=== PATIENT | male | born 2000 | race Caucasian/White ===

== ENCOUNTER 2020-06-23 00:01 | Inpatient (IN) | payer SELFPAY ==
[2020-06-23 00:02] VITALS: BP 121/85; PULSE 91; RESP 16; TEMP 36.6; O2SAT 97; BMI 27.3
--- NOTE | 2020-06-23 00:07 | W.ED.PSYCH ---
HPI - Psych General: Chief Complaint: Psychiatric Symptoms Stated Complaint: SI Time Seen by Provider: 06/23/20 00:01 Source: patient and EMS Mode of arrival: EMS Limitations: no limitations History of Present Illness: HPI Narrative: 19-year-old male who is here with EMS after having suicidal thoughts. Patient states his left him he has been severely depressed. He states he has a plan of getting a knife and cutting his wrist. He has no history of drug or alcohol abuse. He does not take any meds. He voluntarily wants to get help. MD complaint: suicidal ideation Associated symptoms: Reports depression and suicidal ideation Review of Systems Const: Denies: fever(s), chills, body aches or change in appetite Eyes: Denies: blurry vision or eye discomfort ENMT: Denies: throat pain or dental pain Card: Denies: chest pain Resp: Denies: dyspnea GI: Denies: abdominal pain, nausea, vomiting or diarrhea : Denies: dysuria Musc: Denies: neck pain or back pain Skin/Breast: Denies: rash Neuro: Denies: headache(s) Psych: Reports: depression and suicidal ideation Mitchell/Lymph: Denies: easy bruising All/Imm: Denies: urticaria Physical Exam Const: COMMON NORMALS: no acute distress, patient oriented x3 and healthy appearing HENMT: COMMON NORMALS: normocephalic and atraumatic HEAD & SCALP: normocephalic and atraumatic Eye: COMMON NORMALS: Equal, round and reactive pupils present and EOMs intact bilaterally PUPIL: Yes Equal, round and reactive pupils present Neck/C-Spine: COMMON NORMALS: full ROM and supple Chest: COMMONS NORMALS: normal inspection of the chest and normal palpation of entire chest wall Resp: COMMON NORMALS: normal respiratory effort, No retractions, No use of accessory muscles and clear to auscultation bilaterally AUSCULTATION: clear to auscultation bilaterally Cardio: COMMON NORMALS: regular rate, regular rhythm and No murmurs present (Cardio) RATE: regular rate RHYTHM: regular rhythm GI: COMMON NORMALS: Normal to inspection, nondistended, normoactive bowel sounds present, Soft to palpation, non-tender and no masses PALPATION: Yes Soft to palpation Extremity: COMMON NORMALS: normal to inspection and full ROM Neuro: COMMON NORMALS: patient oriented x3, moves all extremities and no focal motor deficits Psych: COMMON NORMALS: mental status grossly normal, Normal thought process present and cooperative MOOD & AFFECT: Yes depressed mood THOUGHT PROCESS: Normal thought process present THOUGHT CONTENT: Yes Suicidality present Skin: COMMON NORMALS: no rashes or lesions noted and no wounds GENERAL SKIN EXAM: no rashes or lesions noted MDM - Psych MDM Narrative: Medical decision making narrative: Patient presents here with suicidal ideation and voluntarily wants to get help. Patient is medically cleared I spoke to Dr. Anglin and will admit to the psychiatric unit. Lab Data: Labs: Lab Results 06/23/20 06/23/20 06/23/20 Range/Units 00:10 00:30 00:30 WBC 10.8 H (4.0-10.0) 10^3/ uL RBC 4.60 (4.1-5.3) 10^6/u L Hgb 13.3 (11.7-16.6) g/dL Hct 40.3 L (42.0-52.0) % MCV 87.6 (80-94) fL MCH 28.9 (28.0-34.0) pg MCHC 33.0 (30.0-36.0) g/dL RDW 12.5 (12.1-15.1) % Plt Count 376 (130-400) 10^3/c mm MPV 9.0 (7.4-10.4) fL Neut % (Auto) 62.3 % Lymph % (Auto) 26.2 % [place] % (Auto) 9.9 % Eos % (Auto) 0.8 % Baso % (Auto) 0.5 % Neut # (Auto) 6.76 (1.8-7.7) 10^3/u L Lymph # (Auto) 2.8 (0.8-4.8) 10^3/u L [place] # (Auto) 1.1 H (0.2-0.9) 10^3/u L Eos # (Auto) 0.1 (0.0-0.8) 10^3/u L Baso # (Auto) 0.1 (0.0-0.1) 10^3/u L Nucleated RBC % (a uto) 0 % Nucleated RBCs # 0.0 /100WBC Sodium 141 (136-145) mmol/L Potassium 3.5 (3.5-5.1) mmol/L Chloride 106 (98-107) mmol/L Carbon Dioxide 23 (22-29) mmol/L Anion Gap 15.5 (5-19) BUN 15 (6-20) mg/dL Creatinine 0.9 (0.7-1.2) mg/dL GFR Calculation 106.5 (90-130) mL/min Glucose 94 (65-115) mg/dL Calculated Osmolal ity 288 (285-295) mOsm/k g Calcium 9.4 (8.5-10.5) mg/dL Total Bilirubin 0.3 (0.15-1.2) mg/dL AST 14 (0-40) U/L ALT 10 (0-41) U/L Alkaline Phosphata se 88 (40-130) IU/L Total Protein 7.4 (6.6-8.7) g/dL Albumin 4.7 (3.5-5.2) g/dL Globulin 2.7 (1.3-4.6) g/dL Urine Opiates Scre en Negative (Negative) ng/mL Ur Barbiturates Sc reen Negative (Negative) ng/mL Ur Phencyclidine S crn Negative (Negative) ng/mL Ur Amphetamines Sc reen Negative (Negative) ng/mL U Benzodiazepines Scrn Negative (Negative) ng/mL Urine Cocaine Scre en Negative (Negative) ng/mL U Marijuana (THC) Screen Negative (Negative) ng/mL Discharge Plan Discharge Patient Disposition: Admitted As Inpatient Admit Provider: Randall Anglin Clinical Impression: Suicidal ideation Condition: Stable Referrals: Marta Feldman DO [Primary Care Provider] - Coding Level of Care Code ED Automatic Corn Grinder Operator for Chg Fwd Exam Comprehensive
[2020-06-23 00:36] LABS: Basophils # 0.1 10^3/uL (0.0-0.1); Basophils % 0.5 %; Eosinophils # 0.1 10^3/uL (0.0-0.8); Eosinophils % 0.8 %; Hematocrit 40.3 % (42.0-52.0); Hemoglobin 13.3 g/dL (11.7-16.6); Lymphocytes # 2.8 10^3/uL (0.8-4.8); Lymphocytes % 26.2 %; Mean Corpuscular Hemoglobin 28.9 pg (28.0-34.0); Mean Corpuscular Volume 87.6 fL (80-94); Monocytes # 1.1 10^3/uL (0.2-0.9); Monocytes % 9.9 %; Neutrophils # 6.76 10^3/uL (1.8-7.7); Neutrophils % 62.3 %; Nucleated Red Blood Cells % 0 %; Platelet Count 376 10^3/cmm (130-400); Red Cell Distribution Width 12.5 % (12.1-15.1); White Blood Count 10.8 10^3/uL (4.0-10.0)
[2020-06-23 00:47] LABS: Amphetamines Screen Urine Negative (Negative); Barbiturates Screen Urine Negative (Negative); Benzodiazepines Screen Urine Negative (Negative); Cocaine Screen Urine Negative (Negative); Opiate Screen Urine Negative (Negative); PCP Screen Urine Negative (Negative); THC Screen Urine Negative (Negative)
[2020-06-23 01:05] LABS: Alanine Aminotransferase 10 U/L (0-41); Albumin Level 4.7 g/dL (3.5-5.2); Alkaline Phosphatase 88 IU/L (40-130); Anion Gap 15.5 (5-19); Aspartate Amino Transferase 14 U/L (0-40); Blood Urea Nitrogen 15 mg/dL (6-20); Calcium 9.4 mg/dL (8.5-10.5); Carbon Dioxide 23 mmol/L (22-29); Chloride 106 mmol/L (98-107); Globulin 2.7 g/dL (1.3-4.6); Glomerular Filtration Rate 106.5 mL/min (90-130); Glucose 94 mg/dL (65-115); Osmolality Calculated 288 mOsm/kg (285-295); Potassium 3.5 mmol/L (3.5-5.1); Sodium 141 mmol/L (136-145); Total Bilirubin 0.3 mg/dL (0.15-1.2); Total Protein 7.4 g/dL (6.6-8.7)
[2020-06-23 01:28] VITALS: BP 116/74; PULSE 74; RESP 16; O2SAT 99
[2020-06-23 01:29] LABS: Acetaminophen < 5.0 ug/mL (10-30); Alcohol Level < 10 mg/dL (0-10); Salicylate < 0.3 mg/dL (3-10)
[2020-06-23 01:36] VITALS: BP 119/76; PULSE 82; RESP 18; TEMP 36.8; O2SAT 100
[2020-06-23 06:00] VITALS: BP 104/65; PULSE 75; RESP 19; TEMP 36.6; O2SAT 98
--- NOTE | 2020-06-23 09:57 | P.PN_ITS ---
Subjective NPU Subjective: Interval history: 19-year-old male who is here with EMS after having suicidal thoughts. Patient states his left him. He has been severely depressed. He states he has a plan of getting a knife and cutting his wrist. He has no history of drug or alcohol abuse. He does not take any meds. He voluntarily wants to get help. Medications: Reviewed: Yes Medication Review Details: Current Medications Acetaminophen (Tylenol) 650 mg PO Q4H PRN PRN Reason: MILD PAIN Benztropine Mesylate (Cogentin) 1 mg PO BID PRN PRN Reason: Mild Extrapyramidal symptoms Camphor/Menthol/Phenol (Blistex) 1 applic TOPICAL Q1H PRN PRN Reason: DRYNESS Diphenhydramine HCl (Benadryl) 50 mg IM ONCE PRN PRN Reason: Severe Extrapyramidal Symptoms Diphenhydramine HCl (Benadryl) 50 mg IM Q4H PRN PRN Reason: Severe Aggression Haloperidol (Haldol) 5 mg PO Q4H PRN PRN Reason: AGITATION Haloperidol Lactate (Haldol Inj) 5 mg IM Q4H PRN PRN Reason: Severe Aggression Hydroxyzine Pamoate (Vistaril) 50 mg PO Q6H PRN PRN Reason: ANXIETY Loperamide HCl (Imodium Capsule) 2 mg PO Q6H PRN PRN Reason: DIARRHEA Lorazepam (Ativan) 2 mg IM Q4H PRN PRN Reason: Severe Aggression Nicotine (Nicoderm 21 Mg Patch) 1 patch TRANSDERMA DAILY PRN PRN Reason: NICOTINE WITHDRAWAL Nicotine Polacrilex (Nicorette) 2 mg BUCCAL Q2H PRN PRN Reason: NICOTINE WITHDRAWAL Olanzapine (Zyprexa Zydis) 5 mg PO Q4H PRN PRN Reason: Agitation/Psychosis Ondansetron HCl (Zofran) 4 mg PO Q6H PRN PRN Reason: NAUSEA AND VOMITING Trazodone HCl (Desyrel) 50 mg PO BEDTIME PRN PRN Reason: SLEEP Mental Status Exam MSE Comments: This is a 19-year-old male who presents at his stated age. Mood is dysphoric but affect is calm. Thought processes are integrated and free of any racing, blocking or looseness of association. There is no evidence of psychosis such as but not limited to hallucinations, delusions or ideas of reference. Cognitive functions are quite good. Insight and judgment likewise. He recognizes that the break-up of his marriage is at least in part his responsibility. He wants to be a responsible parent to his children. He denies suicidal or homicidal ideation, plan or intent. Vitals/I&O/Wt Last Vital Signs Temp 97.9 F 06/23/20 06:00 Pulse 75 06/23/20 06:00 Resp 19 H 06/23/20 06:00 BP 104/65 06/23/20 06:00 Pulse Ox 98 06/23/20 06:00 Weight last 48 hrs Weight 180 lb Physical Exam Narrative: EXAM NARRATIVE: Const: no acute distress, patient oriented x3 and healthy appearing HENMT: normocephalic and atraumatic HEAD & SCALP: normocephalic and atraumatic Eye: Equal, round and reactive pupils present and EOMs intact bilaterally PUPIL: Yes Equal, round and reactive pupils present Neck/C-Spine: full ROM and supple Chest: normal inspection of the chest and normal palpation of entire chest wall Resp: normal respiratory effort, No retractions, No use of accessory muscles and clear to auscultation bilaterally Cardio: regular rate, regular rhythm and No murmurs present (Cardio) RATE: regular rate RHYTHM: regular rhythm GI: Normal to inspection, nondistended, normoactive bowel sounds present, Soft to palpation, non-tender and no masses Extremity: normal to inspection and full ROM Neuro: patient oriented x3, moves all extremities and no focal motor deficits Skin: no rashes or lesions noted and no wounds Data NPU : 06/23/20 00:30 06/23/20 00:30 A&P Assessment and plan (1) Adjustment disorder with depressed mood: This is a crisis. This is not a mental disorder. The patient is resolving very quickly. Status: Acute Involuntary Hold Information 96 Hour Hold: 96 Hour Involuntary Admission: No Attestations NPU Medical Necessity Statement*: I anticipate 1 midnight additional hospitalization Time Spent in Patient Care: Greater than 35 minutes (>than 50% of time spent in counselling and/or direct pt care on unit) . Review of chart. Interview and examine patient. Consultation with cyber ops planner and nursing staff. Documentation. 60 minutes. Coding Level of Care Code Acute Loading Unit Operator Crimping for Varun Fwd Diagnoses Adjustment disorder with depressed mood F43.21
[2020-06-23] MEDS: fluoxetine 10 mg Capsule PO (10:34)
[2020-06-23] MEDS: nicotine 21 mg Patch 1 PATCH TRANSDERMA (11:45)
[2020-06-23 13:51] VITALS: BP 93/54; PULSE 88; RESP 18; TEMP 36.9; O2SAT 97
[2020-06-23] MEDS: nicotine 2 mg Gum BUCCAL (17:42)
[2020-06-23 21:12] VITALS: BP 131/87; PULSE 85; RESP 20; TEMP 37.3; O2SAT 98
[2020-06-23] MEDS: hyDROXYzine 25 mg Capsule 50 MG PO (21:51)
[2020-06-23] MEDS: trazodone 50 mg Tablet PO (21:51)
[2020-06-24 06:00] VITALS: BP 95/57; PULSE 52; RESP 19; TEMP 36.7; O2SAT 98
--- NOTE | 2020-06-24 07:32 | PM.NDC ---
Diagnoses at Discharge Discharge Diagnosis (1) Adjustment disorder with depressed mood: Status: Resolved Reason for Visit Reason for Visit: SI Hospital Course Hospital Course Day #1: The patient is calming down rapidly. I suspect his crisis will be endurable for him by tomorrow. Discharge Summary The patient's anticipated resolution of his crisis came to the pelvis. He denies suicidal or homicidal ideation, plan or intent. He presents with normal mental status. He is neither distraught nor agitated. Involuntary Hold Information 96 Hour Hold: 96 Hour Involuntary Admission: No Mental Status Exam MSE Comments: This is a 19-year-old male who presents at his stated age. Mood is no longer dysphoric and affect is calm. Thought processes are integrated and free of any racing, blocking or looseness of association. There is no evidence of psychosis such as but not limited to hallucinations, delusions or ideas of reference. Cognitive functions are quite good. Insight and judgment likewise. He recognizes that the break-up of his marriage is at least in part his responsibility. He wants to be a responsible parent to his children. He denies suicidal or homicidal ideation, plan or intent. He has insight and judgment sufficient to assure his own safety. Physical Exam Narrative: EXAM NARRATIVE: Const: no acute distress, patient oriented x3 and healthy appearing HENMT: normocephalic and atraumatic HEAD & SCALP: normocephalic and atraumatic Eye: Equal, round and reactive pupils present and EOMs intact bilaterally PUPIL: Yes Equal, round and reactive pupils present Neck/C-Spine: full ROM and supple Chest: normal inspection of the chest and normal palpation of entire chest wall Resp: normal respiratory effort, No retractions, No use of accessory muscles and clear to auscultation bilaterally AUSCULTATION: clear to auscultation bilaterally Cardio: regular rate, regular rhythm and No murmurs present (Cardio) RATE: regular rate RHYTHM: regular rhythm GI: Normal to inspection, nondistended, normoactive bowel sounds present, Soft to palpation, non-tender and no masses PALPATION: Yes Soft to palpation Extremity: normal to inspection and full ROM Neuro: patient oriented x3, moves all extremities and no focal motor deficits Psych: mental status grossly normal, Normal thought process present and cooperative MOOD & AFFECT: Yes depressed mood THOUGHT PROCESS: Normal thought process present THOUGHT CONTENT: Yes Suicidality present Skin: no rashes or lesions noted and no wounds GENERAL SKIN EXAM: no rashes or lesions noted Discharge Data Vitals: Last Vital Signs Temp 98.1 F 06/24/20 06:00 Pulse 52 L 06/24/20 06:00 Resp 19 H 06/24/20 06:00 BP 95/57 06/24/20 06:00 Pulse Ox 98 06/24/20 06:00 Discharge Plan Discharge Patient Disposition: Home Condition: Stable Prescriptions: No Action No Known Home Medications RF: 0 Discharge Orders: Discharge Order (Routine); Ordered 06/24/20 Ordered By: Armin Funez Referrals: [facility] [Outside] - 1-3 days (call and request initial intake for outpatient mental health services. ) Matra Feldman, [Primary Care Provider] - Discharge Diet: Usual diet Discharge Activity: Resume usual activity Discharge Attestations NPU Time Spent in Discharge Care*: greater than 30 min Specific Discharge Activities: Specific discharge activities: educating patient, discussing with clinical case manager/social workers/dc planners, documenting/other paperwork and evaluating patient/reviewing data Coding Level of Care Code Acute Bender Machine Operator for Varun Fwroberto Diagnoses Adjustment disorder with depressed mood F43.21
[2020-06-24 07:55] VITALS: BP 95/57; PULSE 52; RESP 19; TEMP 36.7; O2SAT 98
[2020-06-24 08:30] VITALS: BP 95/57; PULSE 52; RESP 19; TEMP 36.7; O2SAT 98
--- NOTE | 2020-06-24 08:30 | PM.NDC ---
Diagnoses at Discharge Discharge Diagnosis (1) Adjustment disorder with depressed mood: Status: Resolved Reason for Visit Reason for Visit: SI Hospital Course Hospital Course Day #1: The patient is calming down rapidly. I suspect his crisis will be endurable for him by tomorrow. Involuntary Hold Information 96 Hour Hold: 96 Hour Involuntary Admission: No Mental Status Exam MSE Comments: This is a 19-year-old male who presents at his stated age. Mood is no longer dysphoric and affect is calm. Thought processes are integrated and free of any racing, blocking or looseness of association. There is no evidence of psychosis such as but not limited to hallucinations, delusions or ideas of reference. Cognitive functions are quite good. Insight and judgment likewise. He recognizes that the break-up of his marriage is at least in part his responsibility. He wants to be a responsible parent to his children. He denies suicidal or homicidal ideation, plan or intent. He has insight and judgment sufficient to assure his own safety. Physical Exam Narrative: EXAM NARRATIVE: Const: no acute distress, patient oriented x3 and healthy appearing HENMT: normocephalic and atraumatic HEAD & SCALP: normocephalic and atraumatic Eye: Equal, round and reactive pupils present and EOMs intact bilaterally PUPIL: Yes Equal, round and reactive pupils present Neck/C-Spine: full ROM and supple Chest: normal inspection of the chest and normal palpation of entire chest wall Resp: normal respiratory effort, No retractions, No use of accessory muscles and clear to auscultation bilaterally AUSCULTATION: clear to auscultation bilaterally Cardio: regular rate, regular rhythm and No murmurs present (Cardio) RATE: regular rate RHYTHM: regular rhythm GI: Normal to inspection, nondistended, normoactive bowel sounds present, Soft to palpation, non-tender and no masses PALPATION: Yes Soft to palpation Extremity: normal to inspection and full ROM Neuro: patient oriented x3, moves all extremities and no focal motor deficits Psych: mental status grossly normal, Normal thought process present and cooperative MOOD & AFFECT: Yes depressed mood THOUGHT PROCESS: Normal thought process present THOUGHT CONTENT: Yes Suicidality present Skin: no rashes or lesions noted and no wounds GENERAL SKIN EXAM: no rashes or lesions noted Discharge Data Vitals: Last Vital Signs Temp 98.1 F 06/24/20 07:55 Pulse 52 L 09/09/20 07:55 Resp 19 H 06/24/20 07:55 BP 95/57 06/24/20 07:55 Pulse Ox 98 06/24/20 07:55 Discharge Plan Discharge Patient Disposition: Home Condition: Stable Prescriptions: No Action No Known Home Medications RF: 0 Discharge Orders: Discharge Order (Routine); Ordered 06/24/20 Ordered By: Armin Funez Referrals: [facility] [[facility]] - 1-3 days (call and request initial intake for outpatient mental health services. ) Marta Feldman DO [Primary Care Provider] - Discharge Diet: Usual diet Discharge Activity: Resume usual activity Patient Instructions: Anxiety (DC) Discharge Attestations NPU Time Spent in Discharge Care*: less than 30 min Specific Discharge Activities: Specific discharge activities: educating patient, discussing with binder caser/social workers/dc planners, documenting/other paperwork and evaluating patient/reviewing data Coding Level of Care Code Acute Sporting Goods Sales Associate for Varun Fwroberto Diagnoses Adjustment disorder with depressed mood F43.21
== END 2020-06-24 08:57 | disposition home or self-care (01) | DRG 881 ==
LOC: ER 00:21 → NP 01:20
PROVIDERS: Emergency Medicine; Admitting Provider Psychiatry & Neurology Psychiatry; Family Provider Family Medicine; PCP Family Medicine; Visit Provider Psychiatry & Neurology Psychiatry
DX: F43.21 Adjustment disorder with depressed mood (principal); R45.851 Suicidal ideations
CPT/HCPCS: 12345; 80053; 80306; 80307; 85025; 99284

== ENCOUNTER 2022-10-18 12:37 | Emergency (ER) | payer SELFPAY ==
[2022-10-18 12:49] VITALS: BP 154/98; PULSE 107; RESP 18; TEMP 37.1; O2SAT 97
--- NOTE | 2022-10-18 13:21 | W.ED.DENTAL ---
HPI - Dental/Oral General: Chief complaint: Dental/Oral Stated complaint: jaw pain Time Seen by Provider: 10/18/22 12:55 Source: patient Mode of arrival: ambulatory Limitations: no limitations History of Present Illness: Patient is a 21-year-old male who presents to ED today with a complaint of right upper dental pain. He states he has had intermittent pain in that particular tooth for several months. He does feel like over the past couple of days he has noticed some right-sided facial swelling. Patient is able to eat and drink normally. He is not having any fevers. MD Complaint: tooth pain Teeth map: 1. cracked molar Onset (ago): day(s) Duration: intermittent Severity: moderate Relieving factors: nothing Exacerbating factors: chewing Context: history of dental caries and poor dental care Associated symptoms: Denies fever(s) or odynophagia Treatment prior to arrival: none Review of Systems Const: Denies: fever(s), chills, body aches, fatigue or malaise Eyes: Denies: change in vision or blurry vision ENMT: Reports: dental pain; Denies: throat pain, uvular edema, enlarged tonsils, odynophagia, hoarseness, mouth pain, swelling of lips/tongue, oral sores or bleeding gums Card: Denies: chest pain Resp: Denies: dyspnea Musc: Denies: neck pain Skin/Breast: Denies: rash Neuro: Denies: headache(s) Physical Exam Const: COMMON NORMALS: no acute distress, average body habitus, patient oriented x3, no limitations, healthy appearing, alert and well nourished GENERAL APPEARANCE: cooperative HENMT: COMMON NORMALS: normocephalic and atraumatic HEAD & SCALP: normal to inspection, normocephalic and atraumatic FACE & SINUS: other (very subtle R sided facial swelling; no abscess noted) MOUTH: Normal oral and palatal mucosa present, lip normal and tongue normal TEETH & GINGIVA IMAGES: 1. cracked molar THROAT: posterior oropharynx normal, tonsils normal and uvula midline; no uvular edema Eye: GENERAL EYE: appearance normal, both eyes and all related structures Neck/C-Spine: COMMON NORMALS: no lymphadenopathy GENERAL: Yes normal visual inspection Resp: COMMON NORMALS: normal respiratory effort Cardio: COMMON NORMALS: regular rate and regular rhythm RATE: regular rate RHYTHM: regular rhythm Neuro: COMMON NORMALS: patient oriented x3 SENSORIUM/ORIENTATION: Yes alert Course Vital Signs: Vital signs: Vital Signs Temperature 98.8 F 10/18/22 12:49 Pulse Rate 107 H 10/18/22 12:49 Respiratory Rate 18 10/18/22 12:49 Blood Pressure 154/98 10/18/22 12:49 Pulse Oximetry 97 10/18/22 12:49 MDM - Dental/Oral Medical Decision Making Recommend dental follow-up as soon as possible for further evaluation and treatment options. Return ED precautions given. Discharge Plan Discharge Patient Disposition: Home Clinical Impression: Toothache Condition: Stable Prescriptions: New clindamycin HCl 300 mg capsule 300 mg PO Q6H 7 Days Qty: 28 0RF ibuprofen 800 mg tablet 800 mg PO Q8H PRN (Reason: pain) Qty: 20 0RF Discharge Orders: Discharge ED (Routine); Ordered 10/18/22 Ordered By: Kayleen Rodriguez Patient Instructions: Toothache (ED) Coding Level of Care Code ED Wax Pattern Assembler for Varun Mac
== END 2022-10-18 13:33 | disposition home or self-care (01) ==
PROVIDERS: Emergency Provider Physician Assistant
DX: K08.89 Other specified disorders of teeth and supporting structures (principal)
CPT/HCPCS: 99283

== ENCOUNTER 2024-12-27 16:29 | Emergency (ER) | payer SELFPAY ==
[2024-12-27 16:36] VITALS: BP 147/76; PULSE 101; RESP 18; TEMP 37.5; O2SAT 98; BMI 26.3
--- NOTE | 2024-12-27 16:57 | ED_ITS ---
HPI - Allergic Reaction General: Chief complaint: Allergic Reaction Stated complaint: allergic reaction Time Seen by Provider: 12/27/24 16:54 Source: patient Mode of arrival: ambulatory Limitations: no limitations History of Present Illness: HPI narrative: 24-year-old male states that he fell exa m allergic reaction before arrival. He states he started having some redness to his face he felt flushed he said he is having some shortness of breath and felt like his throat was swelling. He states that over the last 30 minutes he states that is improved he still has some slight erythema to his face he denies feeling short of breath currently. He denies any chest pain Associated symptoms: Deny abdominal pain, nausea or vomiting Related Data Previous Rx's ?Medication ?Instructions ?Recorded ibuprofen 800 mg tablet 800 mg PO Q8H PRN pain #20 t abs 10/18/22 Allergies Allergy/AdvReac Type Severity Reaction Status Date / Time amoxicillin Allergy Unknown Verified 06/23/20 00:06 Penicillins Allergy Unknown Verified 06/23/20 00:06 rofecoxib (From Vioxx) Allergy Unknown Verified 06/23/20 00:06 Review of Systems Const: Denies: fever(s), chills, body aches or change in appetite ENMT: Denies: throat pain or dental pain Card: Denies: chest pain Resp: Reports: dyspnea GI: Denies: abdominal pain, nausea, vomiting or diarrhea Musc: Denies: neck pain or back pain Skin/Breast: Reports: rash Neuro: Denies: headache(s) Physical Exam Const: COMMON NORMALS: no acute distress, patient oriented x3 and healthy appearing HENMT: COMMON NORMALS: normocephalic and atraumatic HEAD & SCALP: normocephalic and atraumatic THROAT: posterior oropharynx normal Eye: COMMON NORMALS: Equal, round and reactive pupils present and EOMs intact bilaterally PUPIL: Yes Equal, round and reactive pupils present Neck/C-Spine: COMMON NORMALS: full ROM and supple Chest: COMMONS NORMALS: normal inspection of the chest Resp: COMMON NORMALS: normal respiratory effort, No retractions, No use of accessory muscles and clear to auscultation bilaterally AUSCULTATION: clear to auscultation bilaterally Cardio: COMMON NORMALS: regular rate, regular rhythm and No murmurs present (Cardio) RATE: regular rate RHYTHM: regular rhythm Extremity: COMMON NORMALS: normal to inspection and full ROM Neuro: COMMON NORMALS: patient oriented x3, moves all extremities and no focal motor deficits Psych: COMMON NORMALS: mental status grossly normal, Normal thought process present and cooperative THOUGHT PROCESS: Normal thought process present Skin: COMMON NORMALS: no wounds NARRATIVE SKIN EXAM: Slight rash to face Course Vital Signs: Vital signs: Vital Signs Temperature 99.5 F 12/27/24 16:36 Pulse Rate 90 12/27/24 18:02 Respiratory Rate 18 12/27/24 16:36 Blood Pressure 122/76 12/27/24 18:02 Pulse Oximetry 99 12/27/24 18:02 Oxygen Delivery Me thod Room Air 12/27/24 18:02 MDM - Allergic Reaction Medical Decision Making Patient presents here with an allergic reaction he has no signs of airway involvement he feels much improved here after meds he is stable for discharge follow-up with PCP return if worsening. Medical Records I reviewed the patient's medical records. No radiology studies performed this visit Discharge Plan Discharge Patient Disposition: Home Clinical Impression: Allergic reaction Condition: Stable Prescriptions: No Action ibuprofen 800 mg tablet 800 mg PO Q8H PRN (Reason: pain) Qty: 20 0RF Discharge Orders: Discharge ED (Routine); Ordered 12/27/24 Ordered By: Adry Sin Discharge Diet: Advance as tolerated Discharge Activity: Resume usual activity Patient Instructions: General Allergic Reaction (ED) Print Language: Latvian Coding Level of Care Code ED School Bus Technician for Varun Mac
[2024-12-27] MEDS: diphenhydrAMINE 50 mg/mL SDV 1mL IVP (17:50)
[2024-12-27] MEDS: famotidine 20 mg/2 mL INJ 40 MG IVP (17:57)
[2024-12-27] MEDS: methylPREDNISolone sod succ 125 mg/2 mL INJ IVP (17:58)
[2024-12-27 18:02] VITALS: BP 122/76; PULSE 90; O2SAT 99
[2024-12-27 18:38] VITALS: BP 129/80; PULSE 92; O2SAT 97
== END 2024-12-27 18:41 | disposition home or self-care (01) ==
PROVIDERS: Emergency Provider Emergency Medicine
DX: T78.40XA Allergy, unspecified, initial encounter (principal); X58.XXXA Exposure to other specified factors, initial encounter
CPT/HCPCS: 96374; 96375; 99284; J1200; J2919; J3490

== ENCOUNTER 2025-07-28 10:40 | Emergency (ER) | payer SELFPAY ==
[2025-07-28 10:56] VITALS: BP 139/103; PULSE 93; RESP 20; TEMP 36.7; O2SAT 96; BMI 27.3
--- NOTE | 2025-07-28 11:01 | ED_ITS ---
HPI - Abdominal Pain 2 General: Chief Complaint: Abdominal Pain Stated Complaint: right side pain Lightheaded Time Seen by Provider: 07/28/25 10:56 Source: patient Mode of arrival: ambulatory Limitations: no limitations History of Present Illness: Patient is a 24-year-old male presents to ED today with complaint of right sided abdominal pain of the past 2 days or so. He does feel like pain has progressively worsened since onset. He states he feels incredibly nauseous and lightheaded. He has not had any episodes of emesis. He does feel like he is having more frequent episodes of defecation. He is not complaining of painful defecation or blood in his stools. He has not noticed any black or tarry stools. No history of nephroureterolithiasis. Patient denies previous abdominal surgeries. He is not complaining of back pain. He cannot identify any alleviating or worsening factors to his discomfort. No fevers. MD elicited complaint: abdominal pain Pertinent past history: none Onset (ago): day(s) Pain Consistency: constant Location: RUQ and RLQ Severity: moderate Radiation: none Migration to: no migration Exacerbating factors: nothing Relieving factors: nothing Associated Symptoms: Reports nausea and other (more frequent BMs); Denies chills, dysuria, fever(s), heartburn, hematochezia, hematuria, melena and vomiting Related Data Previous Rx's ?Medication ?Instructions ?Recorded ibuprofen 800 mg tablet 800 mg PO Q8H PRN pain #20 t abs 10/18/22 Allergies Allergy/AdvReac Type Severity Reaction Status Date / Time amoxicillin Allergy Unknown Verified 06/23/20 00:06 Penicillins Allergy Unknown Verified 06/23/20 00:06 rofecoxib (From Vioxx) Allergy Unknown Verified 06/23/20 00:06 Review of Systems 2 Const: Denies: fever(s), chills, body aches, fatigue or malaise Card: Denies: chest pain Resp: Denies: dyspnea GI: Reports: abdominal pain, nausea and other (more frequent BMs); Denies: vomiting, heartburn, rectal pain, hematochezia or melena : Denies: flank pain, dysuria, hematuria, genital pain, testicular pain or scrotal swelling Musc: Denies: back pain Skin/Breast: Denies: rash Neuro: Denies: headache(s) or difficulty walking Physical Exam 2 Const: COMMON NORMALS: no acute distress, average body habitus, patient oriented x3, no limitations, healthy appearing, alert and well nourished G ENERAL APPEARANCE: cooperative ORIENTATION/CONSCIOUSNESS: Yes awake, Yes oriented to person, Yes oriented to place and Yes oriented to time HENMT: COMMON NORMALS: normocephalic and atraumatic HEAD & SCALP: normal to inspection, normocephalic and atraumatic Eye: COMMON NORMALS: no scleral icterus Neck/C-Spine: COMMON NORMALS: full ROM, no lymphadenopathy, supple and no meningeal signs Chest: COMMONS NORMALS: normal inspection of the chest Resp: COMMON NORMALS: normal respiratory effort and clear to auscultation bilaterally AUSCULTATION: clear to auscultation bilaterally Cardio: COMMON NORMALS: regular rate and regular rhythm RATE: regular rate RHYTHM: regular rhythm GI: COMMON NORMALS: Normal to inspection, nondistended, normoactive bowel sounds present, Soft to palpation, No hepatosplenomegaly present and no masses INSPECTION: Yes normal to inspection AUSCULTATION: Yes normoactive bowel sounds PALPATION: Yes Soft to palpation, Yes Tenderness to palpation present (GI) (R mid/lateral abdomen, RLQ) Details: RLQ, No Guarding due to palpation present (GI), No Rigid due to palpation, Yes No hepatosplenomegaly present, No Rebound tenderness present and Yes Other GI palpation findings present (negative specialized testing for appendicitis ) : BLADDER/KIDNEY EXAM: Yes CVA tenderness on the right (mild) Back/Pelvis: COMMON NORMALS: thoracic and lumbar spine normal to inspection GENERAL BACK: Yes CVA tenderness Extremity: COMMON NORMALS: normal to inspection GENERAL: Yes normal exam except as noted Neuro: COMMON NORMALS: patient oriented x3, moves all extremities, no focal motor deficits, no sensory deficits noted and gait normal S ENSORIUM/ORIENTATION: Yes alert, Yes oriented to person, Yes oriented to place and Yes oriented to time MENINGEAL SIGNS: Yes no meningeal signs Skin: COMMON NORMALS: no rashes or lesions noted GENERAL SKIN EXAM: no rashes or lesions noted Course 2 Vital Signs: Vital signs: Vital Signs Temperature 98.1 F 07/28/25 10:56 Pulse Rate 76 07/28/25 11:08 Respiratory Rate 16 07/28/25 11:47 Blood Pressure 127/85 07/28/25 12:32 Pulse Oximetry 97 07/28/25 12:32 Oxygen Delivery Me thod Room Air 07/28/25 12:32 MDM - Abdominal Pain Medical Decision Making Patient is a 24-year-old male here for right sided abdominal pain over the past 2 days or so. Vital signs are stable upon arrival. Blood work obtained showing a white count of 15.5. Remainder of his labs/chemistry are unremarkable. His UA is clear. CT scan obtained to rule out life-threatening or emergent etiology differentials including acute appendicitis, bowel perforation, SBO, nephroureterolithiasis/obstructive uropathy, among others. CT scan was unremarkable. Patient will be allowed discharge with recommendations to follow- up with primary care later this week for reevaluation. Return to ED precautions discussed. Differential Diagnosis Likely abdominal pain, acute appendicitis, calculus of kidney, constipation and diverticulitis Medical Records I reviewed the patient's medical records. Lab Data I reviewed the patient's lab results. 07/28/25 11:09 07/28/25 11:09 Labs/Radiology: Radiology Impressions Abdomen/Pelvis CT 07/28/25 11:42 IMPRESSION: 1. No renal obstruction. 2. No hydronephrosis or periureteral stranding. 3. Normal appendix. 4. No free fluid or free air. 5. No colitis. 6. Negative gallbladder by CT. Laboratory Results WBC 15.50 10^3/uL (3.29-11.43) H 07/28/25 11:09 RBC 5.12 10^6/uL (3.85-5.65) 07/28/25 11:09 Hgb 14.80 g/dL (11.27-16.99) 07/28/25 11:09 Hct 43.6 % (37-53) 07/28/25 11:09 MCV 85.2 fl (82-101) 07/28/25 11:09 MCH 28.9 pg (27-33) 07/28/25 11:09 MCHC 33.9 g/dL (30-55) 07/28/25 11:09 RDW 12.7 % (12.1-15.1) 07/28/25 11:09 Plt Count 467 10^3/cmm (157-399) H 07/28/25 11:09 MPV 8.8 fL (7.4-10.4) 07/28/25 11:09 Neut % (Auto) 70.2 % 07/28/25 11:09 Lymph % (Auto) 19.9 % 07/28/25 11:09 [place] % (Auto) 8.4 % 07/28/25 11:09 Eos % (Auto) 0.6 % 07/28/25 11:09 Baso % (Auto) 0.4 % 07/28/25 11:09 Neut # (Auto) 10.90 10^3/uL (1.8-7.7) H 07/28/25 11:09 Lymph # (Auto) 3.1 10^3/uL (0.8-4.8) 07/28/25 11:09 [place] # (Auto) 1.3 10^3/uL (0.2-0.9) H 07/28/25 11:09 Eos # (Auto) 0.1 10^3/uL (0.0-0.8) 07/28/25 11:09 Baso # (Auto) 0.1 10^3/uL (0.0-0.1) 07/28/25 11:09 Nucleated RBC % (auto) 0 % 07/28/25 11:09 Nucleated RBCs # 0.0 /100WBC 07/28/25 11:09 Sodium 138 mmol/L (136-145) 07/28/25 11:09 Potassium 4.1 mmol/L (3.5-5.1) 07/28/25 11:09 Chloride 101 mmol/L (98-107) 07/28/25 11:09 Carbon Dioxide 23 mmol/L (22-29) 07/28/25 11:09 Anion Gap 18.1 (5-19) 07/28/25 11:09 BUN 10 mg/dL (6-20) 07/28/25 11:09 Creatinine 0.8 mg/dL (0.7-1.2) 07/28/25 11:09 GFR Calculation 116.9 mL/min (90-130) 07/28/25 11:09 Glucose 94 mg/dL (65-115) 07/28/25 11:09 Calculated Osmolality 285 mOsm/kg (285-295) 07/28/25 11:09 Calcium 9.7 mg/dL (8.5-10.5) 07/28/25 11:09 Total Bilirubin 0.3 mg/dL (0.15-1.2) 07/28/25 11:09 AST 27 U/L (0-40) 07/28/25 11:09 ALT 41 U/L (0-41) 07/28/25 11:09 Alkaline Phosphatase 89 U/L (40-130) 07/28/25 11:09 Total Protein 7.7 g/dL (6.6-8.7) 07/28/25 11:09 Albumin 4.8 g/dL (3.5-5.2) 07/28/25 11:09 Globulin 2.9 g/dL (1.3-4.6) 07/28/25 11:09 Lipase 29 U/L (13-60) 07/28/25 11:09 Urine Color Yellow (Yellow) 07/28/25 11:09 Urine Appearance Clear (CLEAR) 07/28/25 11:09 Urine pH 6.0 (5-7) 07/28/25 11:09 Ur Specific [place] 1.014 (1.005-1.030) 07/28/25 11:09 Urine Protein Negative (Negative) 07/28/25 11:09 Urine Glucose (UA) Negative (Normal) 07/28/25 11:09 Urine Ketones Negative (Negative) 07/28/25 11:09 Urine Blood Negative (Negative) 07/28/25 11:09 Urine Nitrate Negative (Negative) 07/28/25 11:09 Urine Bilirubin Negative (Negative) 07/28/25 11:09 Urine Urobilinogen 0.2 mg/dL (Negative) 07/28/25 11:09 Ur Leukocyte Esterase Negative (Negative) 07/28/25 11:09 Amorphous Sediment Not Reportable 07/28/25 11:09 All radiology interpretation(s) finalized by discharge Discharge Plan Discharge Patient Disposition: Home Clinical Impression: Right-sided abdominal pain of unknown etiology Condition: Stable Prescriptions: No Action ibuprofen 800 mg tablet 800 mg PO Q8H PRN (Reason: pain) Qty: 20 0RF Discharge Orders: Discharge ED (Routine); Ordered 07/28/25 Ordered By: Kayleen Rodriguez Patient Instructions: Abdominal Pain (ED), Patient Portal & Oleg Instructions Activity Restrictions/Additional Instructions: As we discussed, your blood work here showing a mild elevation in your white blood cell count but was otherwise completely unremarkable. Your urine was clear. CT scan showing no evidence of surgical/emergent/life-threatening etiology for your discomfort. We discussed continuing to observe symptoms closely at home. You may return to the emergency department for worsening or uncontrollable abdominal pain, fevers, generally feeling worse or unwell, or any other concerns you may have. Print Language: Spanish Coding Level of Care Code ED Business Systems Lead for Varun Mac
[2025-07-28 11:08] VITALS: BP 139/103; PULSE 76; RESP 17; O2SAT 99
--- OUTSIDE RECORDS SUMMARY | 2025-07-28 11:12 | XMS_ITS | Encounter Summary ---
Author Organization 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
--- OUTSIDE RECORDS SUMMARY | 2025-07-28 11:12 | XMS_ITS | Encounter Summary ---
Author Organization [facility] Address [address] [place] [address] Care Team Providers Care Companion Name Role Phone Marta Feldman DO Primary Care Provider [phone] Encounter Details Date Type Department Care Team (Latest Contact Info) Description 09/11/2000 Outpatient Historical [facility] [address] [phone] Judd Leon MD [address] [phone] Unspecified otitis media (Primary Dx) Social History Tobacco Use Types Packs/Day Years Used Date Smoking Tobacco: Never Assessed Sex and Gender Information Value Date Recorded Sex Assigned at Not on file 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
--- OUTSIDE RECORDS SUMMARY | 2025-07-28 11:12 | XMS_ITS | Encounter Summary ---
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
--- OUTSIDE RECORDS SUMMARY | 2025-07-28 11:12 | XMS_ITS | Encounter Summary ---
Author Organization [facility] Address [address] [place] [address] Care Team Providers Care Water Quality Manager Name Role Phone Marta Feldman DO Primary Care Provider Encounter Details Date Type Department Care Team (Latest Contact Info) Description 07/28/[address] 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
--- OUTSIDE RECORDS SUMMARY | 2025-07-28 11:12 | XMS_ITS | Encounter Summary ---
Author Organization [facility] Address [address] [place] [address] Care Team Providers Care Brake Drum Lathe Operator Name Role Phone Marta Feldman DO Primary Care Provider [phone] Encounter Details Date Type Department Care Team (Late st Contact Info) Description 05/03/1999 Outpatient Historical [facility] [address] [phone] Judd Leon MD [address] [phone] Social History Tobacco Use Types Packs/Day Years Used Date Smoking Tobacco: Never Assessed Sex and Gender Information Value Date Recorded Sex Assigned at Not on file 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
--- OUTSIDE RECORDS SUMMARY | 2025-07-28 11:12 | XMS_ITS | Encounter Summary ---
Author Organization [facility] Address [address] [place] [address] Care Team Providers Care News Department Intern Name Role Phone Marta Feldman DO Primary Care Provider Encounter Details Date Type Department Care Team (Latest Contact Info) Description 11/03/2003 Outpatient Historical [facility] [address] [phone] Judd Leno MD [address] [place] [phone] IMPETIGO (Primary Dx); CONJUNCTIVITIS NOS Social History Tobacco Use Types Packs/Day Years Used Date Smoking Tobacco: Never Assessed Sex and Gender Information Value Date Recorded Sex Assigned at Not on file 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
--- OUTSIDE RECORDS SUMMARY | 2025-07-28 11:12 | XMS_ITS | Encounter Summary ---
Author Organization [facility] Address [address] [place] [address] Care Team Providers Care Fish Technologist Name Role Phone Marta Feldman DO Primary Care Provider Encounter Details Date Type Department Care Team (Latest Contact Info) Description 01/07/2002 Outpatient Historical [facility] [address] [phone] Judd Leon MD [address] [phone] OTITIS MEDIA NOS (Primary Dx) Social History Tobacco Use Types Packs/Day Years Used Date Smoking Tobacco: Never Assessed Sex and Gender Information Value Date Recorded Sex Assigned at Not on file 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
--- OUTSIDE RECORDS SUMMARY | 2025-07-28 11:12 | XMS_ITS | Encounter Summary ---
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
--- OUTSIDE RECORDS SUMMARY | 2025-07-28 11:12 | XMS_ITS | Encounter Summary ---
Author Organization [facility] Address [address] [place] [address] Care Team Providers Care Command Center Analyst Name Role Phone Marta Feldman DO Primary Care Provider Encounter Details Date Type Department Care Team (Latest Contact Info) Description 01/11/2000 Outpatient Historical 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
--- OUTSIDE RECORDS SUMMARY | 2025-07-28 11:12 | XMS_ITS | Encounter Summary ---
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
--- OUTSIDE RECORDS SUMMARY | 2025-07-28 11:12 | XMS_ITS | Encounter Summary ---
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
--- OUTSIDE RECORDS SUMMARY | 2025-07-28 11:12 | XMS_ITS | Encounter Summary ---
Author Organization [facility] Address [address] [place] [address] Care Team Providers Care Sqe Name Role Phone Marta Feldman DO Primary Care Provider Encounter Details Date Type Department Care Team (Latest Contact Info) Description 1998 Outpatient Historical [facility] [place] [address] [phone] Judd Leon MD [address] [place] [phone] Routine child health exam (Primary Dx); Candidiasis of mouth Social History Tobacco Use Types Packs/Day Years Used Date Smoking Tobacco: Never Assessed Sex and Gender Information Value Date Recorded Sex Assigned at Not on file Legal Sex Male 5:58 AM SUPPLY COORDINATOR Gender Identity Not on file Sexual Orientation Not on file documented as of this encounter Plan of Treatment Not on file documented as of this encounter Visit Diagnoses Diagnosis Routine child health exam- Primary Routine or child health check Candidiasis of mouth documented in this encounter Care Teams Sqe Relationship Specialty Start Date End Date Marta Feldman DO [address] [place] [phone] PCP - General 9/2/09 documented as of this encounter
--- OUTSIDE RECORDS SUMMARY | 2025-07-28 11:12 | XMS_ITS | Encounter Summary ---
Author Organization [facility] Address [address] [place] [address] Care Team Providers Care Gallery Host Name Role Phone Marta Feldman DO Primary Care Provider Encounter Details Date Type Department Care Team (Latest Contact Info) Description 08/14/2001 Outpatient Historical [facility] [place] [facility] [place] [address] [phone] Judd Leon MD [address] [place] [phone] UNSPEC DENTAL CARIES (Primary Dx); VACCINE FOR SINGL DIS NOS Social History Tobacco Use Types Packs/Day Years Used Date Smoking Tobacco: Never Assessed Sex and Gender Information Value Date Recorded Sex Assigned at Not on file 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
--- OUTSIDE RECORDS SUMMARY | 2025-07-28 11:12 | XMS_ITS | Clinical Summary ---
Author Organization [facility] Address [address] [facility] Attn: [place] [address] Care Team Providers Care Brand Recorder Name Role Phone Marta Feldman DO Primary Care Provider Allergies Active Allergy Reactions Criticality Noted Date Comments Amoxicillin Rash Low 12/25/2008 Clarithromycin Rash Low 12/25/2008 Penicillins Rash Low 12/25/2008 Active Problems Problem Noted Date Diagnosed Date Mood swings 10/20/2015 Migraine 01/10/2013 ADHD (attention deficit hyperactivity disorder) 04/21/2010 Immunizations Immunization Administration Dates Next Due (M-M-R II/PRIORIX)(12 MO UP) MEASLES, MUMPS AND RUBELLA VIRUS VACCINE, 0.5 ML IM/SUBCUT 01/20/2004,12/20/1999 (VARIVAX)(12 MOS UP)VARICELL A VIRUS VACCINE (PF) 0.5 ML, SUB CUT 08/14/2001 Dt Dtp Dtap Vaccine 01/20/2004, 0,07/05/1999,05/03,02/22/1999 HIB, Unspecified Formulation 12/20/1999, 07/05/1999,05/03/1999,02/22 HPV Vaccine 3 Dose IM VFC 05/23/2016,12/08/2014, 06/30/2014 Hepatitis B Vaccine 07/05/1999,01/22/1999,1998 IPV/OPV 01/20/2004, 0,05/03/1999,02/22 Meningococcal A Conjugate Va ccine IM VFC 05/23/2016,06/30/2014 Tdap Vaccine > 7 Yo IM VFC 05/29/2012,04/21/2010 Social History Tobacco Use Types Packs/Day Years Used Date Smoking Tobacco: Former Cigarettes Smokeless Tobacco: Never Alcohol Use Standard Drinks/Week Comments Not Asked 0 (1 standard drink = 0.6 oz pur e alcohol) Sex and Gender Information Value Date Recorded Sex Assigned at Not on file 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 Gender Identity Not on file Sexual Orientation Not on file Last Filed Vital Signs Vital Sign Reading Time Taken Comments Blood Pressure 106/70 03/26/2018 3:25 PM CDT Pulse 115 03/26/2018 3:25 PM CDT Temperature 37 C (98.6 F) 03/26/2018 3:25 PM CDT Respiratory Rate 19 03/26/2018 3:25 PM CDT Oxygen Saturation - - Inhaled Oxygen Concentration - - Weight 60.6 kg (133 lb 9.6 oz) 03/26/2018 3:25 P M CDT Height 174 cm (5' 8.5 ) 03/26/2018 3:25 PM CDT Body Mass Index 20.02 03/26/2018 3:25 PM CDT Plan of Treatment Health Maintenance Due Date Last Done Comments DTAP/TDAP/TD VACCINES (8 - T d or Tdap) 05/29/2022 05/29/2012, 04/21/2010, 01/20/2004, Additional history exists INFLUENZA VACCINE (#1) 2025 HEPATITIS B VACCINES Completed 07/05/1999, 01/22/1999, 1998 HPV VACCINES Completed 05/23/2016, 11/17, 06/30/2014 Care Teams Brand Recorder Relationship Specialty Start Date End Date Marta Feldman DO [address] [place] [address] PCP - General 06/17/09
--- OUTSIDE RECORDS SUMMARY | 2025-07-28 11:12 | XMS_ITS | Encounter Summary ---
Author Organization [facility] Address [address] [place] [address] Care Team Providers Care Manager Equipment Name Role Phone Marta Feldman DO Primary Care Provider Encounter Details Date Type Department Care Team (Latest Contact Info) Description 03/17/[address] 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
--- OUTSIDE RECORDS SUMMARY | 2025-07-28 11:12 | XMS_ITS | Encounter Summary ---
Author Organization [facility] Address [address] [place] [address] Care Team Providers Care Rotational Moulding Operator Name Role Phone Marta Feldman DO Primary Care Provider Encounter Details Date Type Department Care Team (Latest Contact Info) Description 06/29/1999 Outpatient Historical [facility] [place] [address] [phone] Mary Ellen Cook MD [address] [place] [phone] Unspecified otitis media (Primary Dx); Candidiasis of mouth Social History Tobacco Use Types Packs/Day Years Used Date Smoking Tobacco: Never Assessed Sex and Gender Information Value Date Recorded Sex Assigned at Not on file 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
--- OUTSIDE RECORDS SUMMARY | 2025-07-28 11:12 | XMS_ITS | Encounter Summary ---
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
--- OUTSIDE RECORDS SUMMARY | 2025-07-28 11:12 | XMS_ITS | Encounter Summary ---
Author Organization [facility] Address [address] [place] [address] Care Team Providers Care Exhibitions Curator Name Role Phone Marta Feldman DO Primary Care Provider Encounter Details Date Type Department Care Team (Latest Contact Info) Description 08/02/1999 Outpatient Historical [facility] [place] [address] [phone] Mary Ellen Cook MD [address] [place] [phone] Rash and other nonspecific skin eruption (Primary Dx); Acute pharyngitis Social History Tobacco Use Types Packs/Day Years Used Date Smoking Tobacco: Never Assessed Sex and Gender Information Value Date Recorded Sex Assigned at Not on file 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
--- OUTSIDE RECORDS SUMMARY | 2025-07-28 11:12 | XMS_ITS | Encounter Summary ---
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
--- OUTSIDE RECORDS SUMMARY | 2025-07-28 11:12 | XMS_ITS | Encounter Summary ---
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
--- OUTSIDE RECORDS SUMMARY | 2025-07-28 11:12 | XMS_ITS | Encounter Summary ---
Author Organization [facility] Address [address] [place] [address] Care Team Providers Care Shroudman Name Role Phone Marta Feldman DO Primary Care Provider Encounter Details Date Type Department Care Team (Latest Contact Info) Description 03/05/2003 Outpatient Historical [facility] [address] [phone] Judd Leon MD [address] [phone] SCABIES (Primary Dx) Social History Tobacco Use Types Packs/Day Years Used Date Smoking Tobacco: Never Assessed Sex and Gender Information Value Date Recorded Sex Assigned at Not on file 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
--- OUTSIDE RECORDS SUMMARY | 2025-07-28 11:12 | XMS_ITS | Encounter Summary ---
Author Organization [facility] Address [address] [place] [address] Care Team Providers Care Charge Account Authorizer Name Role Phone Marta Feldman DO Primary Care Provider [phone] Encounter Details Date Type Department Care Team (Latest Contact Info) Description 01/20/1999 Outpatient Historical [facility] [place] [address] [phone] Mary Ellen Cook MD [address] [place] [phone] Candidiasis of mouth (Primary Dx); Nasal/sinus dis NEC Social History Tobacco Use Types Packs/Day Years Used Date Smoking Tobacco: Never Assessed Sex and Gender Information Value Date Recorded Sex Assigned at Not on file 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
--- OUTSIDE RECORDS SUMMARY | 2025-07-28 11:12 | XMS_ITS | Encounter Summary ---
Author Organization [facility] Address [address] [place] [address] Care Team Providers Care Childcare Center Director Name Role Phone Marta Feldman DO Primary Care Provider [phone] Encounter Details Date Type Department Care Team (Late st Contact Info) Description 12/20/1999 Outpatient Historical [facility] [address] [phone] Judd Leon MD [address] [phone] Social History Tobacco Use Types Packs/Day Years Used Date Smoking Tobacco: Never Assessed Sex and Gender Information Value Date Recorded Sex Assigned at Not on file 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
--- OUTSIDE RECORDS SUMMARY | 2025-07-28 11:12 | XMS_ITS | Encounter Summary ---
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
--- OUTSIDE RECORDS SUMMARY | 2025-07-28 11:12 | XMS_ITS | Encounter Summary ---
Author Organization [facility] Address [address] [place] [address] Care Team Providers Care Assorter Laundry Name Role Phone Marta Feldman DO Primary Care Provider [phone] Encounter Details Date Type Department Care Team (Latest Contact Info) Description 07/14/2000 Outpatient Historical [facility] [address] [phone] Judd Leon MD [address] [phone] Diarrhea (Primary Dx) Social History Tobacco Use Types Packs/Day Years Used Date Smoking Tobacco: Never Assessed Sex and Gender Information Value Date Recorded Sex Assigned at Not on file 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
--- OUTSIDE RECORDS SUMMARY | 2025-07-28 11:12 | XMS_ITS | Encounter Summary ---
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
--- OUTSIDE RECORDS SUMMARY | 2025-07-28 11:12 | XMS_ITS | Encounter Summary ---
Author Organization [facility] Address [address] [place] [address] Care Team Providers Care Telegraph Editor Name Role Phone Marta Feldman DO Primary Care Provider [phone] Encounter Details Date Type Department Care Team (Late st Contact Info) Description 03/16/[address] [facility] [address] [phone] Judd Leon MD [address] [phone] Social History Tobacco Use Types Packs/Day Years Used Date Smoking Tobacco: Never Assessed Sex and Gender Information Value Date Recorded Sex Assigned at Not on file Legal Sex Male 5:58 AM DIRECTOR OF PHYSICAL THERAPY Gender Identity Not on file Sexual Orientation Not on file documented as of this encounter Plan of Treatment Not on file documented as of this encounter Visit Diagnoses Not on filedocumented in this encounter Care Teams Telegraph Editor Relationship Specialty Start Date End Date Marta Feldman DO [address] [place] [address] PCP - General 06/17/09 documented as of this encounter
--- OUTSIDE RECORDS SUMMARY | 2025-07-28 11:12 | XMS_ITS | Encounter Summary ---
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
--- OUTSIDE RECORDS SUMMARY | 2025-07-28 11:12 | XMS_ITS | Encounter Summary ---
Author Organization [facility] Address [address] [place] [address] Care Team Providers Care Cornetist Name Role Phone Marta Feldman DO Primary Care Provider Encounter Details Date Type Department Care Team (Latest Contact Info) Description 03/25/1999 Outpatient Historical [facility] [address] [phone] Judd Leon MD [address] [place] [phone] Acute bronchitis (Primary Dx); Other and unspecified noninfectious gastroenteritis and colitis(558.9) Social History Tobacco Use Types Packs/Day Years Used Date Smoking Tobacco: Never Assessed Sex and Gender Information Value Date Recorded Sex Assigned at Not on file 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
--- OUTSIDE RECORDS SUMMARY | 2025-07-28 11:12 | XMS_ITS | Encounter Summary ---
Author Organization [facility] Address [address] [place] [address] Care Team Providers Care Chimney Construction Supervisor Name Role Phone Marta Feldman DO Primary Care Provider Encounter Details Date Type Department Care Team (Late st Contact Info) Description 07/05/1999 Outpatient Historical [facility] [address] [phone] Judd Leon MD [address] [phone] Social History Tobacco Use Types Packs/Day Years Used Date Smoking Tobacco: Never Assessed Sex and Gender Information Value Date Recorded Sex Assigned at Not on file Legal Sex Male 5:58 AM DERRICK HAND Gender Identity Not on file Sexual Orientation Not on file documented as of this encounter Plan of Treatment Not on file documented as of this encounter Visit Diagnoses Not on filedocumented in this encounter Care Teams Chimney Construction Supervisor Relationship Specialty Start Date End Date Marta Feldman DO [address] [place] [address] PCP - General 06/17/09 documented as of this encounter
--- OUTSIDE RECORDS SUMMARY | 2025-07-28 11:12 | XMS_ITS | Encounter Summary ---
Author Organization [facility] Address [address] [place] [address] Care Team Providers Care Senior Instructional Designer Name Role Phone Marta Feldman DO Primary Care Provider [phone] Encounter Details Date Type Department Care Team (Latest Contact Info) Description 06/28/[address] [facility] [address] [phone] Judd Leon MD [address] [place] [phone] Other, multiple, and unspecified sites, insect bite, nonvenomous, infected(919.5) (Primary Dx) Social History Tobacco Use Types Packs/Day Years Used Date Smoking Tobacco: Never Assessed Sex and Gender Information Value Date Recorded Sex Assigned at Not on file Legal Sex Male 5:58 AM DATA INTEGRITY CONSULTANT Gender Identity Not on file Sexual Orientation Not on file documented as of this encounter Plan of Treatment Not on file documented as of this encounter Visit Diagnoses Diagnosis Other, multiple, and unspecified sites, insect bite, nonvenomous, infected(919.5)- Primary Other, multiple, and unspecified sites, insect bite, nonvenomous, infected documented in this encounter Care Teams Senior Instructional Designer Relationship Specialty Start Date End Date Marta Feldman DO [address] [place] [address] PCP - General 06/17/09 documented as of this encounter
--- OUTSIDE RECORDS SUMMARY | 2025-07-28 11:12 | XMS_ITS | Encounter Summary ---
Author Organization [facility] Address [address] [place] [address] Care Team Providers Care Barrel Inspector Tight Name Role Phone Marta Feldman Primary Care Provider Encounter Details Date Type Department Care Team (Late st Contact Info) Description 08/04/2015 Nurse Triage Report [id number] ABSTRACTION Elle Robertson, CHOIR DIRECTOR [address] 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 Report feedback to Dr. Marta Feldman Associated Symptoms: Took a a long white oblong pill with letters AP on it Onset: Last monday Location: Denies Pain Assessment: 1 - 10 with 10 being the most severe pain Denies Treatment so far for current presenting problem: Denies History (Clinical Problems): (ADHD) Medications: Reviewed medications in EPIC with caller Medication reactions: Reviewed reactions in [facility] with with caller <<<<<<<< TRIAGE NOTE >>>>>>>> <<<<<<<< TRIAGE/OUTCOME >>>>>>>> Guideline Title: Poisoning (Pediatric) Recommended Disposition: Call Poison Center Immediately Physician Contacted: No Caller provides unclear information about type or amount of substance ? YES documented in this encounter Plan of Treatment Not on file documented as of this encounter Visit Diagnoses Not on filedocumented in this encounter Care Teams Barrel Inspector Tight Relationship Specialty Start Date End Date Marta Feldman DO [address] [place] [address] PCP - General 06/17/09 documented as of this encounter
--- OUTSIDE RECORDS SUMMARY | 2025-07-28 11:12 | XMS_ITS | Encounter Summary ---
Author Organization [facility] Address [address] [place] [address] Care Team Providers Care Development Trainer Name Role Phone Marta Feldman DO Primary Care Provider Encounter Details Date Type Department Care Team (Latest Contact Info) Description 01/22/1999 Outpatient Historical [facility] Medicine [place] [address] [phone] Judd Leon MD [address] [place] [phone] Routine child health exam (Primary Dx) Social History Tobacco Use Types Packs/Day Years Used Date Smoking Tobacco: Never Assessed Sex and Gender Information Value Date Recorded Sex Assigned at Not on file 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
--- OUTSIDE RECORDS SUMMARY | 2025-07-28 11:12 | XMS_ITS | Encounter Summary ---
Author Organization 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
--- OUTSIDE RECORDS SUMMARY | 2025-07-28 11:12 | XMS_ITS | Clinical Summary ---
Author Organization [facility] Address 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
--- OUTSIDE RECORDS SUMMARY | 2025-07-28 11:12 | XMS_ITS | Encounter Summary ---
Author Organization [facility] Address [address] [place] [address] Care Team Providers Care Gymnastics Instructor Name Role Phone Marta Feldman DO Primary Care Provider Encounter Details Date Type Department Care Team (Latest Contact Info) Description 11/27/2002 Outpatient Historical [facility] Medicine [place] [address] [phone] Judd Leon MD [address] [place] [phone] NONSPECIF SKIN ERUPT NEC (Primary Dx) Social History Tobacco Use Types Packs/Day Years Used Date Smoking Tobacco: Never Assessed Sex and Gender Information Value Date Recorded Sex Assigned at Not on file 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
--- OUTSIDE RECORDS SUMMARY | 2025-07-28 11:12 | XMS_ITS | Encounter Summary ---
Author Organization [facility] Address [address] [place] [address] Care Team Providers Care Automotive Customer Experience Advisor Name Role Phone Marta Feldman DO Primary Care Provider Encounter Details Date Type Department Care Team (Latest Contact Info) Description 12/11/2003 Outpatient Historical [facility] [address] [phone] Judd Leon MD [address] [phone] UNSPEC DENTAL CARIES (Primary Dx) Social History Tobacco Use Types Packs/Day Years Used Date Smoking Tobacco: Never Assessed Sex and Gender Information Value Date Recorded Sex Assigned at Not on file 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
[2025-07-28 11:18] LABS: Add Urine Microscopic? NO
[2025-07-28 11:20] LABS: Hematocrit 43.6 % (37-53); Hemoglobin 14.80 g/dL (11.27-16.99); Mean Corpuscular HGB Conc 33.9 g/dL (30-55); Mean Corpuscular Hemoglobin 28.9 pg (27-33); Mean Corpuscular Volume 85.2 fl (82-101); Nucleated Red Blood Cells % 0 %; Platelet Count 467 10^3/cmm (157-399); Red Blood Count 5.12 10^6/uL (3.85-5.65); White Blood Count 15.50 10^3/uL (3.29-11.43)
[2025-07-28 11:32] LABS: Glucose Urine UA Negative (Normal); Nitrate Urine Negative (Negative); Specific Gravity, Urine 1.014 (1.005-1.030)
[2025-07-28 11:34] LABS: Alanine Aminotransferase 41 U/L (0-41); Albumin Level 4.8 g/dL (3.5-5.2); Alkaline Phosphatase 89 U/L (40-130); Anion Gap 18.1 (5-19); Aspartate Amino Transferase 27 U/L (0-40); Blood Urea Nitrogen 10 mg/dL (6-20); Calcium 9.7 mg/dL (8.5-10.5); Carbon Dioxide 23 mmol/L (22-29); Chloride 101 mmol/L (98-107); Creatinine Clr Calc Pharmacy 145.8622; Globulin 2.9 g/dL (1.3-4.6); Glucose 94 mg/dL (65-115); Lipase 29 U/L (13-60); Osmolality Calculated 285 mOsm/kg (285-295); Potassium 4.1 mmol/L (3.5-5.1); Sodium 138 mmol/L (136-145); Total Protein 7.7 g/dL (6.6-8.7)
[2025-07-28 11:39] VITALS: BP 132/78; O2SAT 95
[2025-07-28 11:41] LABS: Charge for UA Resulting for Rev
--- NOTE | 2025-07-28 11:42 | CT_ITS ---
WS: [id number] CT ABDOMEN AND PELVIS WITH CONTRAST HISTORY: R sided abdominal pain, nausea TECHNIQUE: Imaging performed of the abdomen and pelvis with IV contrast. Single phase imaging of the abdomen. Coronal and sagittal reformats are submitted. All CT scans at [facility] use at least one of these dose optimization techniques: automated exposure control; mA and/or kV adjustment per patient size (includes targeted exams where dose is matched to clinical indication); or iterative reconstruction. IV CONTRAST: Omnipaque 350; 100 mL IV. Oral contrast: No DLP: 612.63 mGy.cm COMPARISON: None available. Lower thorax: Lung bases are clear. Heart is normal size. No hiatal hernia. Liver/biliary system: Normal size with no intrahepatic dilatation. Gallbladder: Normal. No gallstones or wall thickening. No pericholecystic fluid. Pancreas: Normal size pancreas and pancreatic duct. No adjacent inflammation. Spleen: Normal size spleen. No mass or infarct. Adrenal glands: Normal. Right kidney: Normal. Left kidney: Normal size kidney. No obstruction. 2 mm calcification upper pole. Aorta: Normal. Lymphadenopathy: None. Free fluid: None. GI tract: No obstruction. Normal appendix. No colitis. Abdominal wall: Fat containing umbilical hernia. Pelvis: No free fluid or adenopathy within the pelvis. Fat-containing inguinal canals. No herniation of GI tract. Bones: Prior RIGHT femur ORIF. CT/CT abdomen pelvis w con* [id number] IMPRESSION: 1. No renal obstruction. 2. No hydronephrosis or periureteral stranding. 3. Normal appendix. 4. No free fluid or free air. 5. No colitis. 6. Negative gallbladder by CT.
[2025-07-28 11:47] VITALS: RESP 16
[2025-07-28] MEDS: ondansetron 2 mg/ML SDV 2 mL 4 MG IVP (11:47)
[2025-07-28] MEDS: morphine 4 mg/mL SDV 1 mL IVP (11:47)
[2025-07-28] MEDS: iohexol 350 mg/mL 500 mL Btl (per mL) IV (12:07)
[2025-07-28 12:32] VITALS: BP 127/85; O2SAT 97
[2025-07-28 12:55] VITALS: BP 127/85; PULSE 81; RESP 17; O2SAT 97
== END 2025-07-28 12:56 | disposition home or self-care (01) ==
PROVIDERS: Emergency Provider Physician Assistant
DX: R10.9 Unspecified abdominal pain (principal)
CPT/HCPCS: 74177; 80053; 81003; 83690; 85025; 96374; 96375; 99285; J2270; J2405